=== PATIENT | female | born 2000 | race Caucasian/White ===

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

== ENCOUNTER → 2019-03-06 | Outpatient (CLI) | payer OTHER ==
--- NOTE | 2019-03-06 13:50 | REP ---
Right shoulder three views History: Shoulder pain There is no acute fracture or dislocation. The joint spaces are normal in appearance. Impression: There is no acute fracture or dislocation. Electronically Signed by John Rowland MD 03/06/2019 01:41 P
== END ==
LOC: M WUC 12:21
PROVIDERS: ATTEND Physician Assistant
DX: M25.511 Pain in right shoulder (principal)

== ENCOUNTER 2019-06-07 18:22 | Emergency (ER) | payer OTHER ==
[~2019-06-07] VITALS: Ht 160 cm; Wt 70.0 kg
[2019-06-07 18:52] LABS: BASO % 0.4 % (0.0-1.0); EOS # 0.2 10^3/uL (0.0-0.5); HEMATOCRIT 39.3 % (36.0-47.0); HEMOGLOBIN 13.3 g/dl (12.0-15.5); LYMPH # 1.2 10^3/uL (1.5-5.0); LYMPH % 16.1 % (24.0-44.0); MEAN CORPUSCULAR HEMOGLOBIN 28.1 pg (27.0-33.0); MEAN CORPUSCULAR HGB CONC 33.8 g/dl (32.0-36.5); MEAN CORPUSCULAR VOLUME 83.1 fl (80.0-96.0); MONO # 0.6 10^3/uL (0.0-0.8); MONO % 7.6 % (0.0-5.0); NEUTROPHILS # 5.5 10^3/uL (1.5-8.5); NEUTROPHILS % 73.4 % (36.0-66.0); PLATELET COUNT, AUTOMATED 236 10^3/uL (150-450); RED BLOOD COUNT 4.73 10^6/uL (4.00-5.40); WHITE BLOOD COUNT 7.5 10^3/uL (4.0-10.0)
[2019-06-07] MEDS ORDERED: NS 1,000 ML IV ONE (19:00)
[2019-06-07] MEDS ORDERED: ONDANSETRON 4MG/2ML VIAL (J2405) IV ONE (19:00)
[2019-06-07] MEDS ORDERED: KETOROLAC 30 MG/ML VIAL (J1885) IV ONE (19:00)
[2019-06-07 19:26] LABS: ALBUMIN 3.6 GM/DL (3.2-5.2); ALT/SGPT 30 U/L (12-78); BILIRUBIN,DIRECT 0.3 MG/DL (0.0-0.2); BILIRUBIN,TOTAL 0.9 MG/DL (0.2-1.0); BLOOD UREA NITROGEN 13 MG/DL (7-18); CALCIUM LEVEL 9.1 MG/DL (8.5-10.1); CARBON DIOXIDE LEVEL 26 MEQ/L (21-32); CHLORIDE LEVEL 103 MEQ/L (98-107); CREATININE FOR GFR 0.82 MG/DL (0.55-1.30); GLUCOSE, FASTING 88 MG/DL (70-100); LIPASE 58 U/L (73-393); POTASSIUM SERUM 3.8 MEQ/L (3.5-5.1); SODIUM LEVEL 138 MEQ/L (136-145)
[2019-06-07 19:28] LABS: HCG, SERUM QUALITATIVE NEGATIVE (NEGATIVE)
[2019-06-07] MEDS ORDERED: ISOVUE-370 76% 100ML VIAL (Q9967) As Ordered ONE (20:04)
--- NOTE | 2019-06-07 20:57 | REPVR ---
EXAM: CT Abdomen and Pelvis With Contrast EXAM DATE/TIME: 06/07/2019 8:13 PM CLINICAL HISTORY: 19 years old, female; Abdominal pain; Localized; Right lower quadrant (rlq); Additional info: Rlq pain TECHNIQUE: Imaging protocol: Computed tomography of the abdomen and pelvis with intravenous contrast. Radiation optimization: All CT scans at this facility use at least one of these dose optimization techniques: automated exposure control; mA and/or kV adjustment per patient size (includes targeted exams where dose is matched to clinical indication); or iterative reconstruction. Contrast material: ISOVUE 370; Contrast volume: 100 ml; Contrast route: IV; COMPARISON: CT ABD PELVIS WITH CONTRAST 06/04/2015 12:52 AM FINDINGS: Liver: Unremarkable. No mass. Gallbladder and bile ducts: Unremarkable. No calcified stones. No ductal dilation. Pancreas: Unremarkable. No ductal dilation. Spleen: Unremarkable. No splenomegaly. Adrenals: Normal. No mass. Kidneys and ureters: Unremarkable. No stones. No hydronephrosis. Stomach and bowel: Unremarkable. No obstruction. No mucosal thickening. Appendix: No evidence of appendicitis. Intraperitoneal space: There is trace fluid within the right lower pelvis. Vasculature: Unremarkable. No abdominal aortic aneurysm. Lymph nodes: There are numerous enlarged mesenteric lymph nodes. These are new compared to the prior examination. Differential diagnosis includes inflammatory, infectious and neoplastic processes. Further clinical workup is recommended. Bladder: Unremarkable as visualized. Reproductive: Bilateral ovarian cystic lesions, likely follicular cysts, are present. A left cervical nabothian cyst is present and unchanged compared to a prior CT scan performed in 2014. There is a small amount of fluid within the endometrial cavity. Bones/joints: No acute fracture. Soft tissues: Unremarkable. IMPRESSION: 1. Bilateral ovarian cystic lesions, likely follicular cysts, and small free fluid in the right lower pelvis. Consider followup pelvic ultrasound assessment. 2. Mesenteric lymphadenopathy, nonspecific. The findings are new compared to the prior CT scan. Differential diagnosis includes infectious, inflammatory, as well as neoplastic processes. Further clinical workup is recommended. Electronically signed by: Norman Quarles On 06/07/2019 20:57:03 PM
[2019-06-07 21:14] VITALS: BP 126/66
--- NOTE | 2019-06-08 10:26 | ED PDOC ---
Post-Departure Follow-Up dr essence scott faxed formal report of ct abd/p for fu delvisg Waylon Mark MD Jun 08, 2019 10:26
== END 2019-06-07 21:24 | disposition home or self-care (01) ==
LOC: M ED 18:22
DX: I88.0 Nonspecific mesenteric lymphadenitis (principal); N83.299 Other ovarian cyst, unspecified side; R10.31 Right lower quadrant pain; Z88.0 Allergy status to penicillin
CPT/HCPCS: 74177; 80048; 80076; 81001; 83690; 84703; 85025; 96361; 96374; 96375; 99284; J1885; J2405; Q9967

== ENCOUNTER 2019-11-15 20:47 | Emergency (ER) | payer OTHER ==
[~2019-11-15] VITALS: Ht 160 cm; Wt 68.2 kg
[2019-11-16 00:52] LABS: BASO % 0.4 % (0.0-1.0); EOS # 0.1 10^3/uL (0.0-0.5); EOS % 1.4 % (0.0-3.0); HEMATOCRIT 38.4 % (36.0-47.0); HEMOGLOBIN 12.3 g/dl (12.0-15.5); LYMPH # 2.5 10^3/uL (1.5-5.0); LYMPH % 33.3 % (24.0-44.0); MEAN CORPUSCULAR HEMOGLOBIN 28.1 pg (27.0-33.0); MEAN CORPUSCULAR VOLUME 87.9 fl (80.0-96.0); MONO # 0.6 10^3/uL (0.0-0.8); MONO % 8.1 % (0.0-5.0); NEUTROPHILS # 4.3 10^3/uL (1.5-8.5); NEUTROPHILS % 56.5 % (36.0-66.0); PLATELET COUNT, AUTOMATED 255 10^3/uL (150-450); RED BLOOD COUNT 4.37 10^6/uL (4.00-5.40); WHITE BLOOD COUNT 7.6 10^3/uL (4.0-10.0)
[2019-11-16 01:44] LABS: ALBUMIN 3.5 GM/DL (3.2-5.2); ALT/SGPT 20 U/L (12-78); BILIRUBIN,DIRECT < 0.1 MG/DL (0.0-0.2); BILIRUBIN,TOTAL 0.2 MG/DL (0.2-1.0); BLOOD UREA NITROGEN 14 MG/DL (7-18); CALCIUM LEVEL 8.7 MG/DL (8.5-10.1); CARBON DIOXIDE LEVEL 25 MEQ/L (21-32); CHLORIDE LEVEL 106 MEQ/L (98-107); CREATININE FOR GFR 0.72 MG/DL (0.55-1.30); GLUCOSE, FASTING 87 MG/DL (70-100); HCG, SERUM QUANTITATIVE 75894 MIU/ML; LIPASE 74 U/L (73-393); POTASSIUM SERUM 3.8 MEQ/L (3.5-5.1); SODIUM LEVEL 138 MEQ/L (136-145); TOTAL PROTEIN 6.6 GM/DL (6.4-8.2)
[2019-11-16 02:21] LABS: CHLAMYDIA DNA AMPLIFICATION NEGATIVE (NEGATIVE); GC DNA AMPLIFICATION NEGATIVE (NEGATIVE)
--- NOTE | 2019-11-16 03:04 | REPVR ---
PROCEDURE INFORMATION: Exam: US Duplex Artery and Vein of the Abdominal and/or Reproductive Organs, Complete Exam date and time: 11/16/2019 2:05 AM Age: 19 years old Clinical indication: complicated by abdominal or pelvic pain; Lower; First trimester; Gestational age or lmp: 09/18/2019; ; Additional info: Pelvic pain eval for iup TECHNIQUE: Imaging protocol: Real-time duplex ultrasound scan of the arterial and venous flow of the abdominal and/or reproductive organs with B-mode, color Doppler flow and spectral waveform analysis with image documentation. Exam focused on the region of clinical concern. Complete exam. Duplex images required to evaluate vascular conditions. COMPARISON: US PELVIC NON-OB COMPLETE 10/13/2016 2:58 PM FINDINGS: Right ovary: Normal waveforms. Left ovary: Normal waveforms. IMPRESSION: No evidence of ovarian torsion bilaterally. PROCEDURE INFORMATION: Exam: US First Trimester, Transabdominal and US , Transvaginal Exam date and time: 11/16/2019 2:05 AM Age: 19 years old Clinical indication: complicated by abdominal or pelvic pain; Lower; First trimester; Gestational age or lmp: 09/18/2019; ; Additional info: Pelvic pain eval for iup TECHNIQUE: Imaging protocol: Real-time transabdominal obstetrical ultrasound of the maternal pelvis and a first trimester , less than 14 weeks 0 days, with image documentation. Transvaginal imaging was used for better evaluation of the fetus and adnexa. COMPARISON: US PELVIC NON-OB COMPLETE 10/13/2016 2:58 PM FINDINGS: GESTATION: Gestation: Single viable intrauterine gestation. Yolk sac is present. Heart rate: heart rate is 153 bpm. Placenta: Unremarkable. No subchorionic bleed. Amniotic fluid: Amniotic and coelomic fluid are normal for gestational age. BIOMETRY: Estimated gestational age: Sonographically estimated gestational age is 7 weeks 6 days. [place]-Rump length: [place]-rump length of the pole is 1.6 cm. Estimated due date: Estimated date of delivery is 06/28/2020. MATERNAL: Uterus: Uterus measures 11 x 6 x 5.5 cm. Cervix: There is a 1.7 x 2.3 x 1.8 cm cystic structure lateral to the cervix possibly reflecting an eccentric nabothian cyst. Right adnexa: Right ovary measures 3 x 2 x 1.4 cm. Left adnexa: Left ovary measures 3.4 x 2.7 x 2.2 cm. There is a 1.8 cm left ovarian corpus luteal cyst. Intraperitoneal: No intraperitoneal free fluid. IMPRESSION: Single viable intrauterine gestation 7 weeks 6 days of age. 1.8 cm left ovarian corpus luteal cyst. 1.7 x 2.3 x 1.8 cm cystic structure lateral to the cervix possibly reflecting an eccentric nabothian cyst. Electronically signed by: Deven Mcgill On 11/16/2019 03:03:55 AM
[2019-11-16 04:09] VITALS: BP 130/62
== END 2019-11-16 04:12 | disposition home or self-care (01) ==
LOC: M ED 20:47
DX: O20.0 Threatened abortion (principal); O99.331 Smoking (tobacco) complicating pregnancy, first trimester; O34.80 Maternal care for other abnormalities of pelvic organs, unspecified trimester; Z3A.01 Less than 8 weeks gestation of pregnancy; Z88.0 Allergy status to penicillin

== ENCOUNTER → 2019-12-23 | Outpatient (CLI) | payer OTHER ==
[2019-12-23 12:23] LABS: BASO % 0.1 % (0.0-1.0); EOS # 0.1 10^3/uL (0.0-0.5); EOS % 0.7 % (0.0-3.0); HEMATOCRIT 38.2 % (36.0-47.0); LYMPH # 1.4 10^3/uL (1.5-5.0); LYMPH % 19.7 % (24.0-44.0); MEAN CORPUSCULAR VOLUME 85.3 fl (80.0-96.0); MONO # 0.4 10^3/uL (0.0-0.8); MONO % 5.3 % (0.0-5.0); NEUTROPHILS # 5.1 10^3/uL (1.5-8.5); NEUTROPHILS % 73.6 % (36.0-66.0); PLATELET COUNT, AUTOMATED 245 10^3/uL (150-450); RED BLOOD COUNT 4.48 10^6/uL (4.00-5.40); WHITE BLOOD COUNT 6.9 10^3/uL (4.0-10.0)
[2019-12-23 14:28] LABS: CHLAMYDIA DNA AMPLIFICATION NEGATIVE (NEGATIVE); GC DNA AMPLIFICATION NEGATIVE (NEGATIVE)
[2019-12-25 11:06] LABS: HEPATITIS C VIRUS ABY INDEX 0.1 INDEX (<0.8); HIV 1&2 SCREEN CENTAUR NEGATIVE (NEGATIVE); RUBELLA IgG QUALITATIVE IMMUNE (IMMUNE)
== END ==
LOC: M WUC 10:07
PROVIDERS: ATTEND Specialist
DX: Z34.81 Encounter for supervision of other normal pregnancy, first trimester (principal)

== ENCOUNTER → 2020-01-29 | Outpatient (CLI) | payer OTHER ==
--- NOTE | 2020-01-29 17:01 | REP ---
REASON FOR EXAM: anatomy. Multiple ultrasonographic images of the gravid uterus show a single living intrauterine gestation in the cephalic presentation. Doppler interrogation of the heart shows a heart rate of 146 beats per minute. The placenta is fundal, right lateral and not low lying. The subjective amniotic fluid volume is within normal limits. The cervix measures 3.4 cm in length and is closed. Evaluation of the maternal adnexal spaces showed no abnormalities. Once again, a cyst was seen in the lower uterine segment likely a cervical nabothian cyst. This was imaged on prior pelvic ultrasound exams. BPD 4.1 cm = 18 weeks 3 days HC 14.9 cm = 18 weeks 0 day AC 12.9 cm = 18 weeks 3 days FL 3.0 cm = 19 weeks 1 day The estimated weight is 254 grams, which is at the 38th percentile for 19 week 0 day gestational age. Structures visualized as unremarkable are as follows: Thalami, cavum septum pellucidum, cerebellum, cisterna magna, cerebral ventricles, spine, kidneys, bladder, cord insertion, three-vessel umbilical cord, stomach, four-chamber heart, right and left ventricular outflow tracts, upper lip, and upper and lower extremities. IMPRESSION: Single living intrauterine gestation as described above, with an estimated gestational age of 18 weeks 3 days via composite criteria. An KENNETH was not formulated by today's exam. The reason for that is unknown to me. No anomalies were detected.
== END ==
LOC: M WHC 08:44
PROVIDERS: ATTEND Specialist
DX: Z36.89 Encounter for other specified antenatal screening (principal); Z3A.18 18 weeks gestation of pregnancy

== ENCOUNTER → 2020-02-01 | Outpatient (REF) | payer OTHER ==
[2020-02-01 16:30] LABS: APPEARANCE, URINE CLOUDY (CLEAR); BACTERIA, URINE AUTO 3+ (NEGATIVE); BILIRUBIN, URINE AUTO NEGATIVE (NEGATIVE); BLOOD, URINE BLOOD 2+ (NEGATIVE); COLOR, URINE YELLOW (YELLOW); GLUCOSE, URINE (UA) AUTO NEGATIVE (NEGATIVE); KETONE, URINE AUTO NEGATIVE (NEGATIVE); LEUKOCYTE ESTERASE, URINE AUTO 3+ (NEGATIVE); MUCUS, URINE SMALL (NEGATIVE); NITRITE, URINE AUTO NEGATIVE (NEGATIVE); PROTEIN, URINE AUTO 2+ mg/dL (NEGATIVE); RBC, URINE AUTO 36 /HPF (0-3); SPECIFIC GRAVITY URINE AUTO 1.014 (1.002-1.035); SQUAMOUS EPITHELIAL CELL UR AU 12 /HPF (0-6); UROBILINOGEN, URINE AUTO 0.2 mg/dL (0.0-2.0); WBC, URINE AUTO TNTC /HPF (0-3)
== END ==
LOC: M SFHCWAGY 16:06
PROVIDERS: ATTEND Advanced Practice Midwife
DX: N39.0 Urinary tract infection, site not specified (principal)

== ENCOUNTER → 2020-02-22 | Outpatient (REF) | payer OTHER | LOC: M SFHCWAGY 16:38 | PROVIDERS: ATTEND Advanced Practice Midwife | DX: Z34.02 Encounter for supervision of normal first pregnancy, second trimester (principal) | CPT/HCPCS: 87088; 87186; G0463 ==

== ENCOUNTER → 2020-02-29 | Outpatient (REF) | payer OTHER | LOC: M SFHCWAGY 18:08 | PROVIDERS: ATTEND Advanced Practice Midwife | DX: O26.899 Other specified pregnancy related conditions, unspecified trimester (principal) ==

== ENCOUNTER → 2020-04-04 | Outpatient (REF) | payer OTHER ==
[~2020-04-04] MED LIST: DOCU100C16 PO; IBUP80TA PO; PERCOCET PO; PRENTAB9 PO
[2020-04-04 15:32] LABS: HEMATOCRIT 33.4 % (36.0-47.0); HEMOGLOBIN 11.1 g/dl (12.0-15.5); MEAN CORPUSCULAR HEMOGLOBIN 29.9 pg (27.0-33.0); MEAN CORPUSCULAR HGB CONC 33.2 g/dl (32.0-36.5); PLATELET COUNT, AUTOMATED 232 10^3/uL (150-450); RED BLOOD COUNT 3.71 10^6/uL (4.00-5.40); WHITE BLOOD COUNT 9.1 10^3/uL (4.0-10.0)
== END ==
LOC: M PLALAB 12:50
PROVIDERS: ATTEND Advanced Practice Midwife
DX: Z34.82 Encounter for supervision of other normal pregnancy, second trimester (principal); Z3A.26 26 weeks gestation of pregnancy

== ENCOUNTER → 2020-04-22 | Outpatient (CLI) | payer OTHER | LOC: M LAB 08:25 | PROVIDERS: ATTEND Advanced Practice Midwife | DX: O99.810 Abnormal glucose complicating pregnancy (principal) ==

== ENCOUNTER 2020-05-31 05:22 | Outpatient (CLI) | payer OTHER ==
[~2020-05-31] VITALS: Ht 160 cm; Wt 83.7 kg
[~2020-05-31 05:22] MED LIST changes: -DOCU100C16 PO; -IBUP80TA PO; -PERCOCET PO
[2020-05-31 05:39] VITALS: BP 122/78
[2020-05-31 07:44] VITALS: BP 130/75
== END 2020-05-31 08:08 | disposition home or self-care (01) ==
LOC: M LDO 05:22
PROVIDERS: ATTEND Obstetrics & Gynecology
DX: O26.893 Other specified pregnancy related conditions, third trimester (principal); Z3A.36 36 weeks gestation of pregnancy
CPT/HCPCS: 59025; 81001; 87086; G0378; G0463

== ENCOUNTER 2020-06-17 18:14 | Inpatient (IN) | payer OTHER ==
[~2020-06-17] VITALS: Ht 160 cm; Wt 84.5 kg
[2020-06-17 18:34] VITALS: BP 127/74
[2020-06-17] MEDS ORDERED: LACTATED RINGER'S 1000 ML IV STA (18:56)
[2020-06-17] MEDS ORDERED: VANCOMYCIN HCL 1,000 MG, VIAL MATE ADAPTER 1 EACH in D5W 250 ML IV SCH (19:00)
[2020-06-17] MEDS: LR 1,000 ML IV SCH (19:00)
[2020-06-17 19:31] VITALS: BP 113/64
[2020-06-17 19:52] LABS: HEMATOCRIT 32.7 % (36.0-47.0); HEMOGLOBIN 10.6 g/dl (12.0-15.5); MEAN CORPUSCULAR HEMOGLOBIN 27.6 pg (27.0-33.0); MEAN CORPUSCULAR HGB CONC 32.4 g/dl (32.0-36.5); MEAN CORPUSCULAR VOLUME 85.2 fl (80.0-96.0); PLATELET COUNT, AUTOMATED 256 10^3/uL (150-450); RED BLOOD COUNT 3.84 10^6/uL (4.00-5.40); WHITE BLOOD COUNT 11.9 10^3/uL (4.0-10.0)
[2020-06-17] MEDS ORDERED: * PENDING VANCOMYCIN ENTRY XX SCH (21:00)
[2020-06-17 23:17] VITALS: BP 124/67
--- NOTE | 2020-06-17 23:39 | HPEPDOC ---
Obstetrical History & Physical General Date of Admission Jun 17, 2020 at 18:23 Primary Care Physician: MHOAN MTZ CNM History of Present Illness Patient is a 20-year-old female who is a at 39 weeks gestation with an KENNETH of 06/24/20. No records are available to review. Her has been compli cated by A1GDM. She reports good control over her gestational diabetes. She presents to L&D for induction of labor for gestational diabetes. She reports active movement. She denies leaking of fluid, vaginal bleeding or contractions. Chief Complaint: Induction of labor, Other (gestational diabetes) Age: 20 : 1 Term: 0 Pre-term: 0 Abortions: 0 Livin Care Care: Good Care Dating Final EDC: Jun 24, 2020 EGA at Admission: 39 Antepartum Course Diagnos(e)s A1GDM Height (inches): 63 Admission Weight (lbs.): 186 Past Medical History LEAD [employer] History: No pertinent history Past Medical History Medical History gestational diabetes bulging discs Surgical History: Upper endoscopy Family History Significant Family History: Diabetes Social History Marital Status: Family situation: Spouse/partner home Psychosocial History: No pertinent psych hx * Smoker: non-smoker Alcohol: Denies Drugs: denies Abuse Violence Screening Have you been hit/kicked/slapp: No Have you been sexually assault: No Allergies Coded Allergies: Penicillins (Verified Allergy, Unknown, 06/07/19) Medications Scheduled No.137/Iron/Folic Acd ( Vitamin Tablet) 1 Each Tablet, 1 TAB PO DAILY Physical Examination Physical Examination GENERAL: Alert and oriented times three. ABDOMEN: Gravid and non-tender to touch. FETUS: Is vertex (VTX) by sterile vaginal examination (SVE), fetus is vertex (VTX) by Denny. HEART RATE: Regular rate. LUNGS: Clear to auscultation (CTA). EXTREMITIES: Generalized edema. No clonus. Deep tendon reflexes (DTRs) + 2. Vital Signs/I&O Vital Signs Date Time Temp Pulse Resp B/P (MAP) Pulse Ox O2 Delivery O2 Flow Rate FiO2 06/17/20 18:34 98.0 109 16 127/74 (91) Laboratory Data 24H LABS Laboratory Tests 2 06/17/20 18:25: Serology Scanned Report Hepatitis B Testing 9/14/20 19:25: Nucleated Red Blood Cells % (auto) 0.0, Syphilis Serology NONREACTIVE CBC/BMP Laboratory Tests 06/17/20 19:25 Pertinent Laboratoy Data Blood Type: A+ RBC Antibody Screen: Negative HIV: Negative Hepatitis B: Negative Hepatitis C: Negative Rapid Plasma Reagin: Nonreactive Rubella: Immune Chlamydia/Gonorrhea: Negative Group B Streptococcus: Positive Glucose Tolerance Test: 157 Vaginal Examination Dilation: 1cm Cervical Consistency: Medium Cervical Position: Middle Presentation: Cephalic presentation Position: Vertex (occiput) Assessment Heart Rate (FHR): 130 Variability: Moderate Accelerations: Positive Decelerations: None Tocometer Contractions: No Multi-drug resistant Organism: No history of MDRO Assessment/Plan Assessment SIUP at 39 weeks gestation GBS positive Category I FHR tracing A1GDM Plan Admit to Labor and delivery. Production Control Scheduler on induction of labor including Cytotec, oliver bulb, and IV Pitocin. Diet: regular now then switch to clear liquid diet once IV Pitocin has been started. OOB ad brennen. Group B Streptococcus (GBS) positive. Start IV antibiotic prophylaxis once in labor. Labs and intravenous (IV) per unit protocol. Anesthesia consult per patient's request. Lactated Ringers (LR): Bolus 800 mL prior to epidural, then at 125 mL/hr. Anticipate cervical ripening. C-S as appropriate. MOHAN MTZ CNM Jun 17, 2020 23:39
[2020-06-17] MEDS: miSOPROStol 50 MCG 1/2 TAB (S0191) PO SCH (23:49)
[2020-06-18] VITALS (10 sets, daily range): BP systolic 102–136; BP diastolic 52–85
[2020-06-18] MEDS: LR 1,000 ML IV SCH ×4 (02:28→18:09)
[2020-06-18] MEDS: miSOPROStol 50 MCG 1/2 TAB (S0191) PO SCH ×3 (04:06→11:30)
[2020-06-18] MEDS ORDERED: PROMETHAZINE INJ 25 MG/ML VIAL (J2550) IV ONE (06:45)
[2020-06-18] MEDS ORDERED: BUTORPHANOL 2 MG/ML INJ (J0595) IV ONE (06:45)
[2020-06-18] MEDS: VANCOMYCIN HCL 1,000 MG, VIAL MATE ADAPTER 1 EACH in D5W 250 ML IV SCH ×2 (10:04→22:20)
[2020-06-18] MEDS ORDERED: OXYTOCIN 30 UNITS IN 0.9% NaCl 500ML IV BAG (J2590) As Ordered ONE (16:31)
--- NOTE | 2020-06-18 16:35 | IPNPDOC ---
Obstetrical Progress Note Date of Service Jun 18, 2020 Subjective Pt not feeling significantly uncomfortable. Coping well. Has received 3 doses of misoprostol for cervical ripening. No VB/LOF. +FM. Currently, her pain control plan is IV pain meds only (declining epidural). Objective Vital Signs Date Time Temp Pulse Resp B/P (MAP) Pulse Ox O2 Delivery O2 Flow Rate FiO2 06/18/20 12:31 98.3 92 18 110/67 (81) Assessment Heart Rate Tracing: Category I Tocometer Contractions: Yes Frequency: irregular Sterile Vaginal Examination Dilation: 2cm Effacement (%): 70% Station: -3 Cervical Consistency: Soft Cervical Position: Posterior Postion/Presentation: Cephalic presentation Assessment and Plan Age: 20 : 1 Livin Weeks & Days 39+ Status: Reassuring Additional Comments Start Pitocin to continue IOL. Consider intracervical balloon for mechanical dilation if cervix unchanged after 4 hours of receiving Pitocin ANNALISA HAMILTON DO Jun 18, 2020 16:35
[2020-06-18] MEDS ORDERED: OXYTOCIN DRIP 30 UNITS in IV 1 EA IV SCH (16:45)
[2020-06-18] MEDS ORDERED: FENTANYL 2MCG/ML ROPIVACAINE 0.2% IN 0.9% NACL 100ML IVBAG As Ordered ONE (19:39)
[2020-06-18] MEDS ORDERED: LACTATED RINGER'S 1000 ML IV PRN (20:23)
[2020-06-18] MEDS ORDERED: EPIDURAL COMMENT XX SCH (20:23)
[2020-06-18] MEDS ORDERED: FENTANYL/ROPIVACAINE/NACL BAG 100 ML EPIDURAL SCH (20:23)
[2020-06-18] MEDS ORDERED: diphenhydrAMINE 50MG/ML VIAL (J1200) IV PRN (20:23)
[2020-06-18] MEDS ORDERED: EPIDURAL/PCA KEYS XX PRN (20:23)
[2020-06-18] MEDS ORDERED: NALOXONE INJ 0.4MG/1ML VIAL (J2310 PER 1MG) IV PRN (20:23)
[2020-06-18] MEDS ORDERED: REFRIGERATOR IV KEYS XX PRN (20:23)
[2020-06-18] MEDS ORDERED: ONDANSETRON 4MG/2ML VIAL IV PRN (20:23)
[2020-06-18] MEDS ORDERED: ePHEDrine SULFATE 25 MG/5 ML(5MG/ML) SYRINGE IV PRN (20:23)
[2020-06-18] MEDS ORDERED: ePHEDrine SULFATE 25 MG/5 ML(5MG/ML) SYRINGE As Ordered ONE (20:39)
--- NOTE | 2020-06-18 22:54 | IPNPDOC ---
Obstetrical Progress Note Date of Service Jun 18, 2020 Subjective Pt comfortable with epidural. No LOF. Mild spotting. Agrees to Cook intracervical balloon for mechanical dilation. Objective Vital Signs Date Time Temp Pulse Resp B/P (MAP) Pulse Ox O2 Delivery O2 Flow Rate FiO2 06/18/20 18:43 98.8 95 20 136/60 (85) Assessment Heart Rate (FHR): 120 Variability: Moderate Accelerations: Positive Decelerations: Variable Heart Rate Tracing: Category II Tocometer Contractions: Yes Frequency: every 3-7 min. (Pit at 8mU/min) Sterile Vaginal Examination Dilation: 1cm Effacement (%): 70% Station: -3 Cervical Consistency: Soft Cervical Position: Anterior Postion/Presentation: Cephalic presentation Assessment and Plan Group B Streptococcus: Positive Additional Comments Cook balloon successfully placed (60mL/40mL). 2 variable decels shortly after placement. Resolved with maternal positional change. ANNALISA HAMILTON DO Jun 18, 2020 22:54
[2020-06-19] VITALS (8 sets, daily range): BP systolic 98–118; BP diastolic 53–62
[2020-06-19] MEDS ORDERED: BICITRA 30ML SOLN UDC As Ordered ONE (01:59)
[2020-06-19] MEDS ORDERED: ceFAZolin 2 GM/D5W 50 ML IV BAG (J0690 PER 500MG) As Ordered ONE (01:59)
[2020-06-19] MEDS ORDERED: AZITHROMYCIN INJ 500MG VIAL (J0456 PER 500MG) As Ordered ONE (02:05)
--- NOTE | 2020-06-19 02:10 | IPNPDOC ---
Obstetrical Progress Note Date of Service Jun 19, 2020 Subjective Patient has good pain control with epidural. Called into room by RN for persistent / recurrent heart rate decelerations, Cat II. Objective Vital Signs Date Time Temp Pulse Resp B/P (MAP) Pulse Ox O2 Delivery O2 Flow Rate FiO2 06/18/20 18:43 98.8 95 20 136/60 (85) Assessment Heart Rate Tracing: Category II Tocometer Contractions: Yes Frequency: every 3-7 min. Sterile Vaginal Examination Dilation: 5 cm Effacement (%): 70% Station: -2 Cervical Consistency: Soft Cervical Position: Anterior Postion/Presentation: Cephalic presentation Assessment and Plan Status: Non-reassuring Group B Streptococcus: Positive Additional Comments Recommended proceeding with PLTCS for NRFHR / persistent FHR CAT II. Unable to augment/actively manage labor. Pitocin shut off. R/b/a/i of PLTCS reviewed and informed consent obtained. Preparations for OR activated. Anesthesia and Peds notified. ANNALISA HAMILTON DO Jun 19, 2020 02:10
[2020-06-19] MEDS ORDERED: BICITRA 30ML SOLN UDC PO ONE (02:15)
[2020-06-19] MEDS ORDERED: AZITHROMYCIN INJ 500 MG, VIAL MATE ADAPTER 1 EACH in D5W 250 ML IV ONE (02:15)
[2020-06-19] MEDS ORDERED: ceFAZolin SOD 2 GM in IV 1 EA IV ONE (02:15)
[2020-06-19] MEDS ORDERED: dexameTHASONE 4 MG/ML 1ML VIAL (J1100 PER 1MG) As Ordered ONE (02:39)
[2020-06-19] MEDS ORDERED: ONDANSETRON 4MG/2ML VIAL As Ordered ONE (02:39)
[2020-06-19] MEDS ORDERED: KETOROLAC 60MG 2ML VIAL As Ordered ONE (02:39)
[2020-06-19] MEDS ORDERED: MORPHINE PRES-FREE INJ 10 MG/10 ML VIAL (J2274) As Ordered ONE (02:39)
[2020-06-19] MEDS ORDERED: LIDOCAINE 2% W/EPINEPHRINE 20ML VIAL **PRES FREE As Ordered ONE (02:39)
[2020-06-19] MEDS ORDERED: SODIUM BICARBONATE 8.4% INJ 50MEQ 50 ML VIAL As Ordered ONE (02:39)
[2020-06-19] MEDS ORDERED: OXYTOCIN 30 UNITS IN 0.9% NaCl 500ML IV BAG (J2590) As Ordered ONE ×2 (02:39→03:19)
[2020-06-19] MEDS ORDERED: NALBUPHINE HCL 10 MG/ML AMP (J2300) IV PRN (02:40)
[2020-06-19] MEDS ORDERED: ONDANSETRON 4MG/2ML VIAL IV PRN ×3 (02:40→03:30)
[2020-06-19] MEDS ORDERED: diphenhydrAMINE 50MG/ML VIAL (J1200) IV PRN (02:40)
[2020-06-19] MEDS ORDERED: NALOXONE INJ 0.4MG/1ML VIAL (J2310 PER 1MG) IV PRN ×2 (02:40)
[2020-06-19] MEDS ORDERED: METOCLOPRAMIDE INJ 10MG/2ML VIAL (J2765 PER 1) IV PRN ×2 (02:40→03:30)
[2020-06-19 02:47] LABS: CORD GAS ABE V -5.1; CORD GAS HCO3 V 21.8 MEQ/L; CORD GAS PCO2 V 47.2 mmHg; CORD GAS PH V 7.283 UNITS; CORD GAS PO2 V 26.8 mmHg; CORD GAS SBC V 19.4 MEQ/L; CORD GAS TCO2 V 23.3 MEQ/L
[2020-06-19 02:54] LABS: CORD GAS ABE A -3.8; CORD GAS HCO3 A 24.9 MEQ/L; CORD GAS O2 SAT A 38.5 %; CORD GAS PCO2 A 59.3 mmHg; CORD GAS PH A 7.241 UNITS; CORD GAS PO2 A 18.5 mmHg; CORD GAS SBC A 19.8 MEQ/L; CORD GAS TCO2 A 26.7 MEQ/L
[2020-06-19] MEDS ORDERED: OXYTOCIN DRIP 30 UNITS in IV 1 EA IV SCH (03:23)
[2020-06-19] MEDS ORDERED: fentaNYL 100 MCG/2 ML INJECTION (J3010) IV PRN (03:30)
[2020-06-19] MEDS ORDERED: PROMETHAZINE 25 MG TAB PO PRN (03:30)
[2020-06-19] MEDS ORDERED: ONDANSETRON 4 MG TAB PO PRN (03:30)
[2020-06-19] MEDS ORDERED: LR 1,000 ML IV SCH (03:30)
[2020-06-19] MEDS ORDERED: MEASLES,MUMPS,RUBELLA VACCINE INJ (MMR-II) (90707) SC SCH (03:30)
[2020-06-19] MEDS ORDERED: RHOGAM 300 MCG (1500 IU) INJ (J2790) IM SCH (03:30)
[2020-06-19] MEDS ORDERED: ACETAMINOPHEN 500 MG TAB PO PRN (03:30)
[2020-06-19] MEDS ORDERED: KETOROLAC 30 MG/ML 1ML VIAL IV PRN (03:30)
[2020-06-19] MEDS ORDERED: PERCOCET 5MG/325MG TAB PO PRN ×3 (03:30)
[2020-06-19] MEDS ORDERED: ONDANSETRON 4 MG ORAL DISINTEGRATING TAB PO PRN (03:30)
--- NOTE | 2020-06-19 03:34 | ROOPDOC ---
[facility] Report Of Operation Report of Operation DATE OF PROCEDURE: 06/19/20 PREPROCEDURE DIAGNOSES: Non-reassuring heart rate tracing/Persistent Category II. 39+ weeks gestation. Gestational diabetes. POSTPROCEDURE DIAGNOSES: same. PROCEDURE: Primary low transverse section SURGEON: Andres Irizarry DO FACOG GUN STOCKER: none ANESTHESIA: Epidural ESTIMATED BLOOD LOSS: 500 mL. IV FLUIDS: 1200 mL LR URINE OUTPUT: 100 mL COMPLICATIONS: None. PREOPERATIVE ANTIBIOTICS: Ancef 2g IV x 1, Azithromycin 500mg IV. COMPLICATIONS: none DATA: Apgars 8 and 9. Birthweight 2560g, 5lbs 10oz. Cord gases: arterial pH 7.24/BE -3.8, venous pH 7.28/-5.1 SPECIMENS: none PRIMARY INDICATION FOR : Non-reassuring heart rate tracing (persistent Cat II) DESCRIPTION OF PROCEDURE: The patient was counseled on the risks, benefits, indications and alternatives of the procedure. Informed consent was obtained. She was taken to the operating room with IV running and placed on the operating table in the dorsal supine position with a leftward tilt. Regional anesthesia/epidural was bolused and found to be adequate. Sequential compression devices were placed on the lower extremities. A Atkinson catheter was placed under sterile conditions. She was prepared and draped in normal sterile fashion. A time out was performed per protocol. Epidural anesthesia was again found to be adequate. A Pfannenstiel skin incision was made with the 10 blade. The 10 blade was used to dissect down to the level of the rectus sheath fascia. The rectus sheath pressure was incised midline and this was extended bilaterally with Lyn scissors , and manual stretch. The rectus muscle bellies were dissected off the rectus sheath fascia superiorly and inferiorly using both sharp and blunt dissection. The midline was identified. The peritoneum was identified and entered digitally. The peritoneal opening was extended with manual stretch. The Mobius retractor was placed. The vesicouterine peritoneum was dissected with Metzenbaum scissors to create the bladder flap. A low transverse uterine incision was made with the 10 blade. This was extended with manual stretch. The amniotic sac was punctured, and clear fluid was noted. The head delivered through the hysterotomy without difficulty. The remainder of the body delivered with ease. The cord was doubly clamped and cut, and the baby was handed off to awaiting care. data shown above. Cord gases were obtained. The placenta was removed manually. The intrauterine cavity was cleared of all clot and debris. The hysterotomy was closed with 0 Vicryl in running locked fashion. This was reinforced with a second imbricating layer using 0 Vicryl in running fashion. Excellent hemostasis of the hysterotomy was noted. The pelvis was irrigated and the fluid suctioned. The Mobius retractor was removed. The peritoneum was closed with 3-0 Vicryl running fashion. The rectus muscle bellies were reapproximated with interrupted stitches using 3-0 Vicryl. The rectus muscles bellies were hemostatic. The rectus sheath fascia was closed with 0 Vicryl running fashion. The subcutaneous layer was irrigated and the fluid suctioned. Small bleeding vessels were cauterized with Bovie. Excellent hemostasis was noted. The subcutaneous layer was reapproximated with 3-0 Vicryl running fashion. Skin was closed with 3-0 Monocryl in subcuticular fashion. An Optifoam bandage was placed over the closed incision. Sponge, needle and instrument counts were correct per protocol throughout the procedure. The patient tolerated the entire procedure very well. She was transferred to the PACU in stable condition. DO LUIZA Silva JONATHAN R. DO Jun 19, 2020 03:34
[2020-06-19] MEDS: DOCUSATE SODIUM 100 MG CAP PO SCH ×2 (09:31→21:33)
[2020-06-19] MEDS: PRENATAL VITAMINS CHEWABLE TABLET PO SCH (09:32)
[2020-06-19] MEDS: KETOROLAC 30 MG/ML 1ML VIAL IV SCH ×4 (09:32→21:33)
[2020-06-19] MEDS ORDERED: PERCOCET PO (09:59)
[2020-06-19] MEDS ORDERED: IBUP80TA PO (09:59)
[2020-06-19] MEDS ORDERED: DOCU100C16 PO (09:59)
[2020-06-19] MEDS: IBUPROFEN 800 MG TAB PO SCH (23:21)
[2020-06-20 02:00] VITALS: BP 103/53
[2020-06-20 06:00] VITALS: BP 103/55
[2020-06-20] MEDS: IBUPROFEN 800 MG TAB PO SCH ×3 (06:23→22:45)
[2020-06-20 06:50] LABS: HEMATOCRIT 23.5 % (36.0-47.0); HEMOGLOBIN 7.3 g/dl (12.0-15.5); MEAN CORPUSCULAR HEMOGLOBIN 27.3 pg (27.0-33.0); MEAN CORPUSCULAR HGB CONC 31.1 g/dl (32.0-36.5); PLATELET COUNT, AUTOMATED 171 10^3/uL (150-450); RED BLOOD COUNT 2.67 10^6/uL (4.00-5.40); WHITE BLOOD COUNT 9.2 10^3/uL (4.0-10.0)
[2020-06-20] MEDS ORDERED: INFLUENZA QUADRIVALENT PF VACCINE 0.5ML SYRINGE IM ONE (09:00)
[2020-06-20 09:50] VITALS: BP 111/53
[2020-06-20] MEDS: PRENATAL VITAMINS CHEWABLE TABLET PO SCH (10:20)
[2020-06-20] MEDS: DOCUSATE SODIUM 100 MG CAP PO SCH ×2 (10:20→20:33)
[2020-06-20 14:02] VITALS: BP 109/55
[2020-06-20 18:00] VITALS: BP 108/54
[2020-06-20 22:00] VITALS: BP 114/55
[2020-06-21 02:00] VITALS: BP 115/58
[2020-06-21 06:00] VITALS: BP 107/55
[2020-06-21] MEDS: IBUPROFEN 800 MG TAB PO SCH ×2 (06:35→16:11)
[2020-06-21 07:22] LABS: HEMATOCRIT 24.8 % (36.0-47.0); HEMOGLOBIN 7.7 g/dl (12.0-15.5); MEAN CORPUSCULAR HEMOGLOBIN 27.4 pg (27.0-33.0); MEAN CORPUSCULAR VOLUME 88.3 fl (80.0-96.0); PLATELET COUNT, AUTOMATED 182 10^3/uL (150-450); RED BLOOD COUNT 2.81 10^6/uL (4.00-5.40); WHITE BLOOD COUNT 7.3 10^3/uL (4.0-10.0)
[2020-06-21] MEDS: DOCUSATE SODIUM 100 MG CAP PO SCH (08:28)
[2020-06-21] MEDS: PRENATAL VITAMINS CHEWABLE TABLET PO SCH (08:28)
--- NOTE | 2020-06-21 09:45 | DS.PDOC ---
Discharge Summary General Date of Admission Jun 17, 2020 at 18:23 Date of Discharge 06/21/2020 Attending Physician: ANNALISA HAMILTON DO Discharge Summary PROCEDURES PERFORMED DURING STAY: 1. Epidural 2. section ADMITTING DIAGNOSES: 1. Induction of labor for Gestational diabetes. DISCHARGE DIAGNOSES: 1. section for nonreassuring heart rate tracing. COMPLICATIONS/CHIEF COMPLAINT: Induction. HISTORY OF PRESENT ILLNESS: This patient is a 20-year-old 1 who presented for induction of labor secondary to gestational diabetes she underwent a primary service section for nonreassuring heart rate tracing persistent category 2 tracing. section was uncomplicated productive of a liveborn infant Apgars 8 and 9 weight was 2560. Estimated blood loss is 500 hours. Patient did well postoperatively by postoperative day #2 had met all d ischarge criteria cystic structure was stable condition. HOSPITAL COURSE: Uncomplicated. DISCHARGE MEDICATIONS: Please see below. ALLERGIES: Please see below. PHYSICAL EXAMINATION ON DISCHARGE: VITAL SIGNS: Please see below. GENERAL: Well-appearing no acute distress ABDOMINAL EXAMINATION: Soft for probably tender fundus below umbilicus. Incision was dressed EXTREMITIES: Negative calf tenderness NEUROLOGICAL EXAMINATION: Grossly intact PSYCHIATRIC EXAMINATION: Appropriate LABORATORY DATA: Please see below. ACTIVITY: As tolerated. DIET: Regular DISCHARGE PLAN: Home DISCHARGE INSTRUCTIONS: 1. Follow-up 2 weeks for incision check 2. Reports severe pain heavy vaginal bleeding fever or incisional issues 3. Remove dressing and 5-7 days DISCHARGE CONDITION: Stable. Vital Signs/I&Os Vital Signs Date Time Temp Pulse Resp B/P (MAP) Pulse Ox O2 Delivery O2 Flow Rate FiO2 06/21/20 06:00 97.6 92 18 107/55 (72) 06/20/20 22:00 98 Room Air I&O- Last 24 Hours up to 6 AM 06/21/20 06:00 Intake Total 850 ml Balance 850 ml Laboratory Data Labs 24H Laboratory Tests 2 06/21/20 06:42: Nucleated Red Blood Cells % (auto) 0.0 CBC/BMP Laboratory Tests 06/21/20 06:42 Discharge Medications Scheduled Docusate Sodium (Docusate Sodium) 100 Mg Capsule, 100 MG PO BID Ibuprofen (Ibuprofen) 800 Mg Tablet, 800 MG PO Q8H No.137/Iron/Folic Acd ( Vitamin Tablet) 1 Each Tablet, 1 TAB PO DAILY, (Reported) Scheduled PRN Oxycodone/Acetaminophen (Oxycodone-Acetaminophen 5-325) 1 Each Tablet, 2 TAB PO Q6H PRN for SEVERE PAIN (PS 8-10) Allergies Coded Allergies: Penicillins (Verified Allergy, Unknown, 06/07/19) DAVID RESTREPO MD. Jun 21, 2020 09:45
[2020-06-21 18:00] VITALS: BP 122/78
== END 2020-06-21 18:28 | disposition home or self-care (01) | DRG 773 ==
LOC: M LDO 18:14 → M LDI 18:23 → M OBS 06-19 05:04
PROVIDERS: ADMIT Advanced Practice Midwife; ATTEND Advanced Practice Midwife
PROC: 3E0DXGC Introduction of Other Therapeutic Substance into Mouth and Pharynx, External Approach (ICD-10-PCS; 2020-06-17)
PROC: 10D00Z1 Extraction of Products of Conception, Low, Open Approach (ICD-10-PCS; principal; 2020-06-19 02:40)
DX: O24.429 Gestational diabetes mellitus in childbirth, unspecified control (principal); Z37.0 Single live birth; Z3A.39 39 weeks gestation of pregnancy; O99.824 Streptococcus B carrier state complicating childbirth; O76 Abnormality in fetal heart rate and rhythm complicating labor and delivery; Z88.0 Allergy status to penicillin

== ENCOUNTER 2021-03-04 16:37 | Emergency (ER) | payer OTHER ==
[~2021-03-04] VITALS: Ht 160 cm; Wt 86.4 kg
[~2021-03-04 16:37] MED LIST changes: +DOCU100C16 PO; +IBUP80TA PO; +PERCOCET PO
--- NOTE | 2021-03-04 17:22 | REP ---
INDICATION: injury, pain COMPARISON: None. TECHNIQUE: AP and lateral views of the left tibia/fibula. FINDINGS: The osseous structures and joint spaces are intact and normal. There is no evidence for acute fracture or dislocation. Surrounding soft tissues are unremarkable. No subcutaneous emphysema or radiodense foreign body. IMPRESSION: . No acute fracture or dislocation. <Electronically signed by Blas Castillo > 03/04/21 [id number]
--- NOTE | 2021-03-04 17:23 | REP ---
INDICATION: injury, pain COMPARISON: None. TECHNIQUE: AP, lateral, bilateral oblique views left foot. FINDINGS: The osseous structures and joint spaces are intact and normal. There is no evidence for acute fracture or dislocation. Surrounding soft tissues are unremarkable. No subcutaneous emphysema or radiodense foreign body. IMPRESSION: . No acute fracture or dislocation. <Electronically signed by Blas Castillo > 03/04/21 [id number]
[2021-03-04] MEDS ORDERED: IBUP-1022 PO (18:32)
[2021-03-04 19:11] VITALS: BP 134/80
== END 2021-03-04 19:11 | disposition home or self-care (01) ==
LOC: M ED 16:37
DX: S90.512A Abrasion, left ankle, initial encounter (principal); S90.02XA Contusion of left ankle, initial encounter; W23.0XXA Caught, crushed, jammed, or pinched between moving objects, initial encounter; Y92.009 Unspecified place in unspecified non-institutional (private) residence as the place of occurrence of the external cause; Y93.9 Activity, unspecified; Y99.9 Unspecified external cause status; F17.200 Nicotine dependence, unspecified, uncomplicated; Z79.899 Other long term (current) drug therapy; Z88.0 Allergy status to penicillin

== ENCOUNTER → 2021-09-04 | Outpatient (CLI) | payer OTHER ==
[~2021-09-04] MED LIST changes: +IBUP-1022 PO
--- NOTE | 2021-09-05 02:21 | REP ---
INDICATION: PAIN COMPARISON: None. TECHNIQUE: AP, lateral, bilateral oblique and sunrise views. FINDINGS: The osseous structures and joint spaces are intact and normal. There is no evidence for acute fracture or dislocation. No joint effusion is appreciated. Surrounding soft tissues are unremarkable. No subcutaneous emphysema or radiodense foreign body. IMPRESSION: Normal right knee examination. No acute fracture or dislocation. <Electronically signed by Blas Castillo > 09/05/21 [id number]
== END ==
LOC: M WUC 14:17
PROVIDERS: ATTEND Physician Assistant
DX: M25.561 Pain in right knee (principal)

== ENCOUNTER → 2021-10-15 | Outpatient (CLI) | payer OTHER | LOC: M WUC 08:59 | PROVIDERS: ATTEND Nurse Practitioner Family | DX: M79.631 Pain in right forearm (principal); M25.531 Pain in right wrist; Z91.81 History of falling ==

== ENCOUNTER → 2021-10-30 | Outpatient (CLI) | payer OTHER ==
[2021-10-30 17:17] LABS: BASO % 0.5 % (0.0-1.0); EOS # 0.1 10^3/uL (0.0-0.5); EOS % 0.8 % (0.0-3.0); HEMATOCRIT 42.4 % (36.0-47.0); HEMOGLOBIN 13.5 g/dl (12.0-15.5); LYMPH # 2.1 10^3/uL (1.5-5.0); LYMPH % 34.8 % (24.0-44.0); MEAN CORPUSCULAR HEMOGLOBIN 28.2 pg (27.0-33.0); MEAN CORPUSCULAR HGB CONC 31.8 g/dl (32.0-36.5); MEAN CORPUSCULAR VOLUME 88.5 fl (80.0-96.0); MONO # 0.5 10^3/uL (0.0-0.8); MONO % 8.6 % (2.0-8.0); NEUTROPHILS # 3.3 10^3/uL (1.5-8.5); PLATELET COUNT, AUTOMATED 295 10^3/uL (150-450); RED BLOOD COUNT 4.79 10^6/uL (4.00-5.40); WHITE BLOOD COUNT 6.1 10^3/uL (4.0-10.0)
[2021-10-30 18:21] LABS: ERYTHROCYTE SEDIMENTATION RATE 7 mm/hr (0-20)
== END ==
LOC: M WUC 12:07
PROVIDERS: ATTEND Physician Assistant
DX: M51.36 Other intervertebral disc degeneration, lumbar region (principal)

== ENCOUNTER 2021-11-24 19:21 | Emergency (ER) | payer OTHER, SELFPAY ==
[~2021-11-24] VITALS: Ht 160 cm; Wt 82.2 kg
[2021-11-24] MEDS ORDERED: LIDOCAINE 5% (LIDODERM) PATCH TD ONE (22:30)
[2021-11-24] MEDS ORDERED: ASPE4PAD TOP (22:30)
[2021-11-24 22:39] VITALS: BP 133/82
[2021-11-25] MEDS ORDERED: **NOTE PATIENT COMMENT** MISC XX SCH (11:00)
== END 2021-11-24 22:38 | disposition home or self-care (01) ==
LOC: M ED 19:21
DX: M54.50 Low back pain, unspecified (principal); V40.6XXA Car passenger injured in collision with pedestrian or animal in traffic accident, initial encounter; Y92.9 Unspecified place or not applicable; Y93.9 Activity, unspecified; Y99.9 Unspecified external cause status; Z88.0 Allergy status to penicillin